=== PATIENT | male | born 1985 | race Caucasian/White ===

== ENCOUNTER 2016-09-12 13:25 | Emergency (ER) | payer BC, OTHER ==
[2016-09-12] MEDS ORDERED: OXYCODONE-ACETAMINOPHEN 5-325 MG TABLET PO ONE (14:29)
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
[2016-09-12 15:44] VITALS: BP 120/82
== END 2016-09-12 15:44 | disposition home or self-care (01) ==
LOC: ER 13:25
DX: S91.101A Unspecified open wound of right great toe without damage to nail, initial encounter (principal); S91.104A Unspecified open wound of right lesser toe(s) without damage to nail, initial encounter; W07.XXXA Fall from chair, initial encounter; Y93.E9 Activity, other interior property and clothing maintenance; Y92.009 Unspecified place in unspecified non-institutional (private) residence as the place of occurrence of the external cause; F17.210 Nicotine dependence, cigarettes, uncomplicated; Z71.6 Tobacco abuse counseling; I10 Essential (primary) hypertension
CPT/HCPCS: 99283

== ENCOUNTER 2017-07-26 04:08 | Emergency (ER) | payer SELFPAY ==
[2017-07-26 05:07] LABS: ABSOLUTE BASOPHILS # (AUTO) 0.1 10^3/uL (0.0-0.2); ABSOLUTE LYMPHOCYTES (AUTO) 1.9 10^3/uL (0.5-4.7); ABSOLUTE MONOCYTES (AUTO) 0.7 10^3/uL (0.1-1.4); ABSOLUTE NEUT (AUTO) 7.3 10^3/uL (1.7-8.2); BASOPHILS % (AUTO) 0.6 % (0-2); EOSINOPHILS % (AUTO) 0.4 % (0-6); HEMATOCRIT 43.7 % (37.9-51.0); HEMOGLOBIN 15.5 g/dL (13.5-17.0); LYMPHOCYTES % (AUTO) 18.9 % (13-45); MEAN CORPUSCULAR HEMOGLOBIN 31.3 pg (27.0-33.4); MEAN CORPUSCULAR HGB CONC 35.4 g/dL (32.0-36.0); MEAN CORPUSCULAR VOLUME 89 fl (80-97); MONOCYTES % (AUTO) 6.8 % (3-13); PLATELET COUNT 258 10^3/uL (150-450); RED BLOOD COUNT 4.94 10^6/uL (4.35-5.55); RED CELL DISTRIBUTION WIDTH 13.5 % (11.5-14.0); SEGMENTED NEUTROPHILS % (AUTO) 73.3 % (42-78); TOTAL CELLS COUNTED % (AUTO) 100 %; WHITE BLOOD COUNT 9.9 10^3/uL (4.0-10.5)
[2017-07-26 05:12] LABS: APPEARANCE,URINE CLEAR; BILIRUBIN,URINE NEGATIVE (NEGATIVE); COLOR,URINE COLORLESS; GLUCOSE, URINE NEGATIVE (NEGATIVE); KETONES,URINE NEGATIVE (NEGATIVE); LEUKOCYTE ESTERASE,URINE NEGATIVE (NEGATIVE); NITRITE,URINE NEGATIVE (NEGATIVE); PROTEIN,URINE NEGATIVE (NEGATIVE); URINE SPECIFIC GRAVITY 1.002; UROBILINOGEN,URINE NEGATIVE mg/dL (<2.0)
[2017-07-26 05:29] LABS: ALANINE AMINOTRANSFERASE 21 U/L (21-72); ALBUMIN 5.5 g/dL (3.5-5.0); ALKALINE PHOSPHATASE 76 U/L (38-126); ANION GAP 16 (5-19); ASPARTATE AMINO TRANSFERASE 22 U/L (17-59); BILIRUBIN,DIRECT 0.2 mg/dL (0.0-0.4); BILIRUBIN,TOTAL 0.6 mg/dL (0.2-1.3); BLOOD UREA NITROGEN 10 mg/dL (7-20); CALCIUM 10.7 mg/dL (8.4-10.2); CARBON DIOXIDE 25 mmol/L (22-30); CHLORIDE 101 mmol/L (98-107); GLUCOSE 97 mg/dL (75-110); POTASSIUM 3.7 mmol/L (3.6-5.0); SODIUM 141.7 mmol/L (137-145); TOTAL PROTEIN 8.3 g/dL (6.3-8.2)
[2017-07-26 05:31] LABS: ACETAMINOPHEN < 10 ug/mL (10-30); ALCOHOL < 10 mg/dL (NONE DETECTED); SALICYLATE < 1.0 mg/dL (2.0-20.0)
[2017-07-26 05:35] LABS: URINE AMPHETAMINES SCREEN NEGATIVE; URINE BARBITURATES SCREEN NEGATIVE; URINE BENZODIAZEPINES SCREEN NEGATIVE; URINE COCAINE SCREEN UNCONFIRMED POSITIVE; URINE MARIJUANA (THC) SCREEN NEGATIVE; URINE METHADONE SCREEN NEGATIVE; URINE PHENCYCLIDINE SCREEN NEGATIVE
--- NOTE | 2017-07-26 09:50 | EKG REPORT ---
SEVERITY:- BORDERLINE ECG - SINUS RHYTHM BORDERLINE R WAVE PROGRESSION, ANTERIOR LEADS : Confirmed by: Aisha Justin 26-Jul-2017 09:49:20
--- NOTE | 2017-07-26 14:08 | ER Document Report ---
ED General - General Chief Complaint: Psych Problem Stated Complaint: PSYCH EVAL Time Seen by Provider: 07/26/17 06:15 TRAVEL OUTSIDE OF THE [place] IN LAST 30 DAYS: No - HPI Patient complains to provider of: Suicidal ideation Notes: Patient coming in for evaluation of suicidal ideation. Patient states he is a heroin and cocaine abuser and uses cocaine regularly however due to some new social issues has been thinking about harming himself. Patient does not states he does have a plan however does not get to specifics at this time. Patient also does not go into his new social issues. Patient otherwise denies any medical problems. Denies any fever chills nausea vomiting diarrhea. Patient denies any other psychiatric issues or medical issues. - Related Data Allergies/Adverse Reactions: No Known Allergies Allergy (Verified 09/12/16 14:01) Past Medical History - Social History Smoking Status: Unknown if Ever Smoked Family History: Arthritis, CAD, COPD, CVA, DM, Hyperlipidemia, Hypertension, Malignancy, Thyroid Disfunction Patient has suicidal ideation: Yes Patient has homicidal ideation: No - Past Medical History Cardiac Medical History: Reports: Hx Hypertension - high normal Denies: Hx Coronary Artery Disease, Hx Heart Attack Pulmonary Medical History: Reports: Hx Bronchitis Denies: Hx Asthma, Hx COPD, Hx Pneumonia Neurological Medical History: Denies: Hx Cerebrovascular Accident, Hx Seizures Renal/ Medical History: Denies: Hx Peritoneal Dialysis Musculoskeltal Medical History: Reports Hx Arthritis - knees,hips Past Surgical History: Reports: Hx Cholecystectomy, Other - Lymph nodes removed from neck - Immunizations Hx Diphtheria, Pertussis, Tetanus Vaccination: Yes Review of Systems - Review of Systems Constitutional: No symptoms reported EENT: No symptoms reported Cardiovascular: No symptoms reported Respiratory: No symptoms reported Gastrointestinal: No symptoms reported Genitourinary: No symptoms reported Male Genitourinary: No symptoms reported Musculoskeletal: No symptoms reported Skin: No symptoms reported Hematologic/Lymphatic: No symptoms reported Neurological/Psychological: Suicidal ideation Physical Exam - Vital signs Vitals: Temp Pulse Resp BP Pulse Ox 98.6 F 93 16 159/101 H 97 07/26/17 04:18 07/26/17 04:18 07/26/17 04:18 07/26/17 04:18 07/26/17 04:18 Interpretation: Normal - General General appearance: Appears well, Alert - HEENT Head: Normocephalic, Atraumatic Eyes: Normal Pupils: PERRL - Respiratory Respiratory status: No respiratory distress Chest status: Nontender Breath sounds: Normal Chest palpation: Normal - Cardiovascular Rhythm: Regular Heart sounds: Normal auscultation Murmur: No - Abdominal Inspection: Normal Distension: No distension Bowel sounds: Normal Tenderness: Nontender Organomegaly: No organomegaly - Back Back: Normal, Nontender - Extremities General upper extremity: Normal inspection, Nontender, Normal color, Normal ROM , Normal temperature General lower extremity: Normal inspection, Nontender, Normal color, Normal ROM , Normal temperature, Normal weight bearing. No: Alverto's sign - Neurological Neuro grossly intact: Yes Cognition: Normal Orientation: AAOx4 [place] Coma Scale Eye Opening: Spontaneous [place] Coma Scale Verbal: Oriented [place] Coma Scale Motor: Obeys Commands [place] Coma Scale Total: 15 Speech: Normal Motor strength normal: LUE, RUE, LLE, RLE Sensory: Normal - Psychological Associated symptoms: Normal affect, Normal mood - Skin Skin Temperature: Warm Skin Moisture: Dry Skin Color: Normal Course - Re-evaluation Re-evalutation: 07/26/17 14:07 Laboratory studies not reveal any significant pathology. Patient otherwise medically clear for follow-up with her mental health team. - Vital Signs Vital signs: Temp Pulse Resp BP Pulse Ox 98.6 F 93 16 159/101 H 97 07/26/17 04:18 07/26/17 04:18 07/26/17 04:18 07/26/17 04:18 07/26/17 04:18 - Laboratory Result Diagrams: 07/26/17 04:55 07/26/17 04:55 Laboratory results interpreted by me: 07/26/17 04:55 Calcium 10.7 H Total Protein 8.3 H Albumin 5.5 H Salicylates < 1.0 L Acetaminophen < 10 L Discharge - Discharge Clinical Impression: Suicidal ideation, Polysubstance abuse Condition: Good Disposition: PSYCH HOSP/UNIT
[2017-07-27 00:11] VITALS: BP 129/79
--- NOTE | 2017-07-27 06:16 | PSYCHOLOGICAL NOTE ---
Psych Note - Psych Note Psych Note: Reason for Consult: suicidal ideation Consent permissions: Patient coming in for evaluation of suicidal ideation. Patient states he is a heroin and cocaine abuser and uses cocaine regularly however due to some new social issues has been thinking about harming himself. Patient does not states he does have a plan however does not get to specifics at this time. Patient also does not go into his new social issues. Patient disclosed that his "mental state is not right...I knew if I stayed home I would have harmed myself." He discloses that he has plantar hanging himself and confirms he is already as position of the rope and discussed with clinician locations stating "it is similar they would never find me . I do not want my family to have to see." He admits to drug use however states that this is a "small part of his story." Patient was an IV drug user for a long time however is currently been using crack cocaine for the last 6 months. He admits to using drugs for most of his adult life. He reports this is been a way of self-medicating. Patient disclosed his father was a "raging alcoholic" and states relationship discord. Patient's father is now currently dying patient is a difficult time with this. Patient disclosed that he has tried to get help in the past years ago for his mental health but felt medication did not help so continued self-medicating. Patient denies any inpatient psychiatric treatment in the past. patient is alert and orientated to person, place, time and circumstance. Mood is dysphoric with tearful affect. Patient endorses suicidal ideation with plans in means. Patient denies homicidal ideation. Delusions are absent behaviors congruent with intact reality based presentation i.e. organized, linear, rational thinking. Eye contact was fair. Conversational speech was within normal rate, tone and prosody. Intellectual abilities appear to be within the average range. Attention and concentration are fair. Insight, judgment, impulse control are poor due to substance abuse. Substance abuse; cocaine Impression\\plan:Patient is recommended for IVC. Patient discloses suicidal ideation with plans means. Patient is very agitated distressed crying. Patient is dealing with his emotions surrounding his past relationship discord with his father who is now currently home on hospice patient was accepted to [facility]; transportation will occur today. Dr. Brumfield was consulted and the care management this patient; attending physician is in agreement with recommendations and disposition.
== END 2017-07-26 23:49 ==
LOC: ER 04:08
DX: R45.851 Suicidal ideations (principal); F19.10 Other psychoactive substance abuse, uncomplicated; I10 Essential (primary) hypertension; Z90.49 Acquired absence of other specified parts of digestive tract
CPT/HCPCS: 36415; 80053; 80307; 81001; 85025; 93005; 93010; 99285

== ENCOUNTER 2019-02-16 07:45 | Emergency (ER) | payer BC ==
[2019-02-16] MEDS ORDERED: NORMAL SALINE 1000 ML 1,000 ML with POTASSIUM CHLORIDE 20 MEQ, MAGNESIUM SULFATE 8 MEQ,... IV ONE ×5 (08:22)
--- NOTE | 2019-02-16 08:25 | ER Document Report ---
ED General - General Chief Complaint: Nausea/Vomiting Stated Complaint: VOMITING Time Seen by Provider: 02/16/19 08:00 Notes: 33-year-old male who has been on a binge drinking episode for the last 3 days. Patient states he had some deaths in the family and he is been on a binge drinking episode. He denies any suicidal homicidal thoughts denies visual auditory hallucinations denies detox states he is been vomiting. He has some mild epigastric discomfort. States this happens when he drinks a lot. He has a history of drug abuse and alcoholism. He has been doing well up until the in his family. He stated he went on a binge episode this last weekend. States he is feeling better. However he is been vomiting a lot has a lot of epigastric discomfort. Denies fever chills denies chest pain denies shortness of breath. Rates his discomfort is mild to moderate vomiting as severe. TRAVEL OUTSIDE OF THE [place] IN LAST 30 DAYS: No - Related Data Allergies/Adverse Reactions: No Known Allergies Allergy (Verified 09/12/16 14:01) Past Medical History - Social History Smoking Status: Current Every Day Smoker Chew tobacco use (# tins/day): No Frequency of alcohol use: Heavy Drug Abuse: Marijuana Family History: Arthritis, CAD, COPD, CVA, DM, Hyperlipidemia, Hypertension, Malignancy, Thyroid Disfunction Patient has suicidal ideation: No Patient has homicidal ideation: No - Past Medical History Cardiac Medical History: Reports: Hx Hypertension - high normal Denies: Hx Coronary Artery Disease, Hx Heart Attack Pulmonary Medical History: Reports: Hx Bronchitis Denies: Hx Asthma, Hx COPD, Hx Pneumonia Neurological Medical History: Denies: Hx Cerebrovascular Accident, Hx Seizures Renal/ Medical History: Denies: Hx Peritoneal Dialysis Musculoskeletal Medical History: Reports Hx Arthritis - knees,hips Past Surgical History: Reports: Hx Cholecystectomy, Other - Lymph nodes removed from neck - Immunizations Hx Diphtheria, Pertussis, Tetanus Vaccination: Yes Review of Systems - Review of Systems Constitutional: denies: Chills, Fever Cardiovascular: denies: Chest pain, Dyspnea Respiratory: denies: Short of breath, Wheezing Gastrointestinal: Abdominal pain, Diarrhea, Nausea, Vomiting Genitourinary: denies: Dysuria, Hematuria Skin: denies: Rash Neurological/Psychological: Depression, Anxiety. denies: Confusion, Dementia, Hallucinations, Sensory change, Headaches, Speech impairment -: Yes All other systems reviewed and negative Physical Exam - Vital signs Vitals: Temp Pulse Resp BP Pulse Ox 98.8 F 128 H 16 164/104 H 96 02/16/19 07:51 02/16/19 07:51 02/16/19 07:51 02/16/19 07:51 02/16/19 07:51 - Notes Notes: GENERAL_APPEARANCE: well_nourished, alert, cooperative, vomiting VITALS: reviewed, see vital signs table. HEAD: no_swelling\tenderness on the head. EYES: PERRL, EOMI, conjunctiva_clear. NOSE: no_nasal_discharge. MOUTH: (-)decreased moisture. THROAT: no_tonsilar_inflammation, no_airway_obstruction. no_lymphadenopathy NECK: supple, no_neck_tenderness, (-)thyromegaly. BACK: no_back_tenderness. CHEST_WALL: no_chest_tenderness. LUNGS: no_wheezing, no_rales, no_rhonchi, (-)accessory muscle use, good air exchange bilateral. HEART: normal_rate, normal_rhythm, normal_S1, normal_S2, (-)S3, (-)S4, no_murmur, no_rub. ABDOMEN: normal_BS, soft, gastric_abd_tenderness, (-)guarding, (-)rebound, no_organomegaly, no_abd_masses. EXTREMITIES: good pulses in all_extremities, no_swelling\tenderness in the extremities, no_edema. SKIN: warm, dry, good_color, no_rash. MENTAL_STATUS: speech_clear, oriented_X_3, she does_affect, responds_ap propriately to questions. NEURO: Neg Motor or Sensory Deficits on exam, CN 2-12 intact, DTR 2+ symmetric x 4, No cerbellar signs PSYCH: Denies suicidal homicidal ideation denies visual auditory hallucinations Course - Re-evaluation Re-evalutation: 02/16/19 08:25 33-year-old male comes in with nausea vomiting epigastric discomfort. Patient has been on a 3-day binge drinking episode. He has a history of alcoholism in the past and drug use. He was doing well and unfortunately went on a schmidt due to some deaths in the family. Likely has some alcoholic gastritis we will check some generalized labs give him IV fluids IV Protonix. IV fluids and a banana bag. 02/16/19 11:19 Patient is feeling much better. Banana bag is gone and likely has alcoholic gastritis. Otherwise his lab work is fairly reassuring. No significant pancreatitis or hepatitis. We will place the patient on Pepcid and sucralfate for home. Patient does not want any kind of detox help. He will be discharged home. - Vital Signs Vital signs: Temp Pulse Resp BP Pulse Ox 98.8 F 128 H 16 145/95 H 99 02/16/19 07:51 02/16/19 07:51 02/16/19 10:38 02/16/19 10:38 02/16/19 10:38 - Laboratory Result Diagrams: 02/16/19 08:15 02/16/19 08:15 Laboratory results interpreted by me: 02/16/19 02/16/19 08:15 08:15 Hgb 17.7 H Glucose 115 H Total Protein 8.6 H Albumin 5.2 H Acetaminophen < 10 L Discharge - Discharge Clinical Impression: Alcoholic gastritis without bleeding Qualifiers: Chronicity: acute Qualified Code(s): K29.20 - Alcoholic gastritis without bleeding Condition: Good Disposition: HOME, SELF-CARE Instructions: Gastritis ([facility]) Prescriptions: Famotidine [Pepcid 40 mg Tablet] 40 mg PO QHS #30 tablet Sucralfate [Carafate 1 gm Tablet] 1 gm PO ACHS #21 tablet
[2019-02-16 08:29] LABS: ABSOLUTE BASOPHILS # (AUTO) 0.1 10^3/uL (0.0-0.2); ABSOLUTE EOSINOPHILS # (AUTO) 0.1 10^3/uL (0.0-0.6); ABSOLUTE LYMPHOCYTES (AUTO) 2.8 10^3/uL (0.5-4.7); ABSOLUTE MONOCYTES (AUTO) 0.7 10^3/uL (0.1-1.4); BASOPHILS % (AUTO) 0.9 % (0-2); EOSINOPHILS % (AUTO) 0.8 % (0-6); HEMATOCRIT 49.5 % (37.9-51.0); HEMOGLOBIN 17.7 g/dL (13.5-17.0); LYMPHOCYTES % (AUTO) 32.4 % (13-45); MEAN CORPUSCULAR HEMOGLOBIN 33.1 pg (27.0-33.4); MEAN CORPUSCULAR HGB CONC 35.6 g/dL (32.0-36.0); MEAN CORPUSCULAR VOLUME 93 fl (80-97); PLATELET COUNT 322 10^3/uL (150-450); RED BLOOD COUNT 5.34 10^6/uL (4.35-5.55); SEGMENTED NEUTROPHILS % (AUTO) 57.9 % (42-78); TOTAL CELLS COUNTED % (AUTO) 100 %; WHITE BLOOD COUNT 8.7 10^3/uL (4.0-10.5)
[2019-02-16 08:47] LABS: ALBUMIN 5.2 g/dL (3.5-5.0); ALCOHOL 113 mg/dL (NONE DETECTED); ALKALINE PHOSPHATASE 88 U/L (38-126); ANION GAP 17 (5-19); ASPARTATE AMINO TRANSFERASE 54 U/L (17-59); BILIRUBIN,DIRECT 0.2 mg/dL (0.0-0.4); BILIRUBIN,TOTAL 0.6 mg/dL (0.2-1.3); BLOOD UREA NITROGEN 14 mg/dL (7-20); CALCIUM 9.8 mg/dL (8.4-10.2); CARBON DIOXIDE 23 mmol/L (22-30); CHLORIDE 98 mmol/L (98-107); GLUCOSE 115 mg/dL (75-110); POTASSIUM 4.1 mmol/L (3.6-5.0); TOTAL PROTEIN 8.6 g/dL (6.3-8.2)
[2019-02-16] MEDS ORDERED: FAMOTIDINE INJ/PF 20 MG/2 ML SDV IV ONE (08:54)
[2019-02-16 08:58] LABS: ACETAMINOPHEN < 10 ug/mL (10-30)
--- NOTE | 2019-02-16 09:00 | RADIOLOGY REPORT (SQ) ---
EXAM DESCRIPTION: ACUTE ABDOMEN SERIES COMPLETED DATE/TIME: 02/16/2019 8:49 am REASON FOR STUDY: Vomiting COMPARISON: Chest x-ray dated 08/05/2015 NUMBER OF VIEWS: Three views. TECHNIQUE: Frontal chest, supine abdomen and upright/decubitus abdomen radiographic images acquired. LIMITATIONS: None. FINDINGS: CHEST: Lungs clear of infiltrates. FREE AIR: None. No abnormal gas collections. BOWEL GAS PATTERN: Nonobstructive pattern. No dilated loops or air fluid levels. CALCIFICATIONS: No suspicious calcifications. HARDWARE: There are clips in the right upper quadrant consistent with prior cholecystectomy. SOFT TISSUES: No gross mass or suggestion of organomegaly. BONES: No acute fracture. No worrisome bone lesions. OTHER: No other significant finding. IMPRESSION: NO RADIOGRAPHIC EVIDENCE FOR ACUTE ABDOMINAL DISEASE. TECHNICAL DOCUMENTATION: JOB ID: [id number] [employer]- All Rights Reserved Reading location - IP/workstation name: [email or web address]
[2019-02-16] MEDS ORDERED: NORMAL SALINE 1000 ML 1,000 ML IV ONE (09:13)
[2019-02-16 09:57] LABS: APPEARANCE,URINE CLEAR; BILIRUBIN,URINE NEGATIVE (NEGATIVE); COLOR,URINE STRAW; GLUCOSE, URINE NEGATIVE (NEGATIVE); KETONES,URINE NEGATIVE (NEGATIVE); LEUKOCYTE ESTERASE,URINE NEGATIVE (NEGATIVE); NITRITE,URINE NEGATIVE (NEGATIVE); PROTEIN,URINE NEGATIVE (NEGATIVE); URINE SPECIFIC GRAVITY 1.004; UROBILINOGEN,URINE NEGATIVE mg/dL (<2.0)
[2019-02-16 11:35] VITALS: BP 143/98
== END 2019-02-16 11:54 | disposition home or self-care (01) ==
LOC: ER 07:45
DX: K29.20 Alcoholic gastritis without bleeding (principal); F10.20 Alcohol dependence, uncomplicated; R11.2 Nausea with vomiting, unspecified; R19.7 Diarrhea, unspecified; F17.200 Nicotine dependence, unspecified, uncomplicated; F12.10 Cannabis abuse, uncomplicated; I10 Essential (primary) hypertension; Z63.4 Disappearance and death of family member; Z90.49 Acquired absence of other specified parts of digestive tract; F32.9 Major depressive disorder, single episode, unspecified; F41.9 Anxiety disorder, unspecified
CPT/HCPCS: 36415; 80307 ×2; 83690; 85025; 80053; 74022; 81001; J3475; J3480; J3411; J7030; S0028; J3490; 96361; 96374; 99284